=== PATIENT | female | born 1960 | race American Indian/Alaskan Native ===

== ENCOUNTER 2018-04-03 11:25 | Outpatient (CLI) | payer BC ==
--- NOTE | 2018-04-03 13:32 | Mammography Report ---
BILATERAL DIGITAL SCREENING MAMMOGRAM with CAD : 04/03/18 11:25:00 CLINICAL: Routine screening. COMPARISON:10/19/15 and 11/06/15 FINDINGS: The breasts are heterogeneously dense, which may obscure small masses.Bilateral scattered calcifications with benign morphology. No mass, architectural distortion or suspicious calcifications. IMPRESSION: No mammographic evidence of malignancy. BI-RADS CATEGORY: 2 -- Benign RECOMMENDATION: Routine mammographic screening in one year. COMMENT: Patient follow-up letters are generated by our [employer] application.
== END 2018-04-03 11:26 | disposition home or self-care (01) ==
LOC: SPVWC 11:25
PROVIDERS: ATTEND Obstetrics & Gynecology
DX: Z12.31 Encounter for screening mammogram for malignant neoplasm of breast (principal)
CPT/HCPCS: 77067

== ENCOUNTER 2019-04-08 17:10 | Outpatient (CLI) | payer BC ==
--- NOTE | 2019-04-12 11:32 | Mammography Report ---
DIGITAL SCREENING MAMMOGRAM WITH CAD, 04/08/2019 INDICATION: Routine screening mammography. TECHNIQUE: Digital bilateral 2D mammography was obtained in the craniocaudal and mediolateral obliq ue projections. This examination was interpreted with the benefit of Computer-Aided Detection analysi s. COMPARISON: 04/03/2018 FINDINGS: Breast Density: The breasts are heterogeneously dense, which may obscure small masses. There is no evidence of dominant mass, suspicious calcifications or architectural distortion in eithe r breast. Scattered bilateral calcifications with benign morphology. IMPRESSION: No mammographic evidence of malignancy. Follow up recommendation: Routine yearly BI-RADS Category 2: Benign. A "normal" or negative report should not discourage follow up or biopsy of a clinically significant f inding. A written summary of these findings will be mailed to the patient. The patient will be entered into a mammography reporting system which will generate a reminder letter for the patient's next appointmen t at the appropriate interval. The [employer] recommends yearly mammograms starting at age 40 and continuing as l fern as a woman is in good health. Breast MRI is recommended for women with an approximate 20-25% or greater lifetime risk of breast cancer, including women with a strong family history of breast or ova conrad cancer or who have been treated for Hodgkin's disease. Signer Name: Wilfredo Mckay MD Signed: 04/12/2019 11:28 AM Workstation Name: [id number]
== END 2019-04-08 17:11 | disposition home or self-care (01) ==
LOC: SPVWC 17:10
PROVIDERS: ATTEND Obstetrics & Gynecology
DX: Z12.31 Encounter for screening mammogram for malignant neoplasm of breast (principal)
CPT/HCPCS: 77067

== ENCOUNTER 2020-04-11 08:00 | Outpatient (CLI) | payer BC ==
--- NOTE | 2020-04-14 08:09 | Mammography Report ---
DIGITAL SCREENING MAMMOGRAM WITH CAD, 04/13/2020 INDICATION: Routine screening mammography. TECHNIQUE: Digital bilateral 2D mammography was obtained in the craniocaudal and mediolateral obliq ue projections. This examination was interpreted with the benefit of Computer-Aided Detection analysi s. COMPARISON: 04/03/2018. FINDINGS: Breast Density: The breasts are heterogeneously dense, which may obscure small masses. There is no evidence of dominant mass, suspicious calcifications or architectural distortion in the l eft breast. Increasing calcifications 3:00 right breast posterior depth. Magnification views are senait mmended. IMPRESSION: Follow up recommendation: Special View: Mag BI-RADS Category 0: Incomplete. Needs additional imaging evaluation and/or prior mammograms for aravind rison. A "normal" or negative report should not discourage follow up or biopsy of a clinically significant f inding. A written summary of these findings will be mailed to the patient. The patient will be entered into a mammography reporting system which will generate a reminder letter for the patient's next appointmen t at the appropriate interval. The [employer] recommends yearly mammograms starting at age 40 and continuing as l fern as a woman is in good health. Breast MRI is recommended for women with an approximate 20-25% or greater lifetime risk of breast cancer, including women with a strong family history of breast or ova conrad cancer or who have been treated for Hodgkin's disease. Signer Name: Papi Solares MD Signed: 04/14/2020 8:04 AM Workstation Name: [id number]
== END 2020-04-11 08:01 | disposition home or self-care (01) ==
LOC: SPVWC 08:00
PROVIDERS: ATTEND Surgery
DX: Z12.31 Encounter for screening mammogram for malignant neoplasm of breast (principal)
CPT/HCPCS: 77067

== ENCOUNTER 2020-04-18 08:19 | Outpatient (CLI) | payer BC ==
--- NOTE | 2020-04-18 10:42 | Mammography Report ---
DIGITAL DIAGNOSTIC MAMMOGRAM WITH CAD , 04/18/2020 CLINICAL INFORMATION / INDICATION: Grouped calcifications in the right breast on screening mammograph y. -Rt abn mammo TECHNIQUE: Digital right mammographic imaging was performed. Magnification views were obtained. This examination was interpreted with the benefit of Computer-aided Detection analysis. COMPARISON: Bilateral mammography 04/11/20. FINDINGS: Breast Density: The breasts are heterogeneously dense, which may obscure small masses. There are 2 adjacent areas of grouped calcifications in the right breast superomedially. The posterio r group is coarse and heterogeneous and the anterior group is faint and amorphous. No other abnormali ty is seen. IMPRESSION: 2 adjacent areas of grouped calcifications in the right breast are suspicious. Biopsy of both groups is recommended. Follow up recommendation: Surgical consult BI-RADS Category 4: Suspicious for Malignancy. BI-RADS Category 4B-intermediate suspicion for maligna ncy. A "normal" or negative report should not discourage follow up or biopsy of a clinically significant f inding. A written summary of these findings will be mailed to the patient. The patient will be entered into a mammography reporting system which will generate a reminder letter for the patient's next appointmen t at the appropriate interval. According to the [employer], yearly mammograms are recommended starting at age 40 and continuing as long as a woman is in good health. Breast MRI is recommended for women with an ana roximately 20-25% or greater lifetime risk of breast cancer, including women with a strong family his tory of breast or ovarian cancer and women who have been treated for Hodgkin's disease. Signer Name: Jacob Crawford MD Signed: 04/18/2020 10:37 AM Workstation Name: [email or web address]
--- NOTE | 2020-04-18 12:18 | Ultrasound Report ---
ULTRASOUND BREAST LEFT COMPLETE, 04/18/2020 CLINICAL INFORMATION / INDICATION: LEFT BREAST CYST, INTRADUCTAL MASS. TECHNIQUE: Complete sonographic evaluation of all 4 quadrants and retroareolar region was performed. COMPARISON: Bilateral mammography 04/11/20. FINDINGS: There is moderate ductal ectasia in the subareolar region. There is a 2.8 mm rounded isoechoic solid nodule in one of the dilated ducts in the subareolar region at the 6:00 position. No posterior featur es are seen and no internal vascularity is noted on Doppler exam. No other abnormality is identified. There is no evidence of adenopathy. IMPRESSION: 2.8 mm solid intraductal nodule in the subareolar region likely represents a papilloma. B iopsy is recommended. Follow up recommendation: Surgical consult BI-RADS Category 4: Suspicious for Malignancy. BI-RADS Category 4A-low suspicion for malignancy. A normal or "negative" report should not preclude biopsy or follow-up of a clinically suspicious find ing. Signer Name: Jacob Crawford MD Signed: 04/18/2020 12:14 PM Workstation Name: [id number]
== END 2020-04-18 08:20 | disposition home or self-care (01) ==
LOC: SPVWC 08:19
PROVIDERS: ATTEND Surgery
DX: N60.42 Mammary duct ectasia of left breast (principal); N63.42 Unspecified lump in left breast, subareolar

== ENCOUNTER 2020-05-03 09:41 | Outpatient (CLI) | payer BC ==
--- NOTE | 2020-05-03 13:37 | Mammography Report ---
RIGHT DIAGNOSTIC MAMMOGRAM INDICATION: Status post right breast stereotactic biopsy. COMPARISON: 04/18/2020, 04/11/2020. FINDINGS: Right breast CC and LM projection mammograms were obtained. These document the accurate loc ation of a biopsy marker within an anterior group of calcifications which were noted in the right upp er breast imaging. Moderate size hematoma is noted in this region measuring up to 2.4 x 2.9 x 1.9 cm. Interval decrease in number of calcifications previously noted in this region. IMPRESSION: Right breast mammographic images documenting accurate location of a biopsy marker within an anterior group of calcifications noted previously in the right upper inner breast. A moderate size hematoma is present at the biopsy site. BI-RADS Category 4: Suspicious for Malignancy. Signer Name: Rivas Muñoz MD Signed: 05/03/2020 1:36 PM Workstation Name: [id number]
--- NOTE | 2020-05-03 13:51 | Mammography Report ---
PERCUTANEOUS STEREOTACTIC-GUIDED RIGHT BREAST BIOPSY WITH MARKER PLACEMENT HISTORY: Right breast calcifications in 2 separate areas. CONSENT: Technique, risks and alternatives were discussed with the patient and informed written conse nt obtained. We specifically discussed the risk of bleeding as multiple blood vessels were noted in t he region of these calcifications. PROCEDURE: The patient was placed in the prone position on the Siemens biopsy table. The calcifications in quest ion in the upper inner anterior right breast were targeted mammographically. Cad Detailer and stereo pair im ages were acquired to generate the computer-derived coordinates for targeting. The skin overlying the chosen biopsy site were cleansed with Betadine. The skin and superficial soft tissues were anesthet ized with a small amount of buffered 1% lidocaine. The deeper soft tissues were anesthetized with bu ffered 1% lidocaine with epinephrine. A small dermatotomy was created through which the [facility] biopsy device was placed. Pre and post fire st ereo pair images were acquired to confirm appropriate needle trajectory. Using vacuum assistance, mul tiple core specimen samples were acquired. A post procedure specimen radiograph confirmed calcificati ons within core specimen samples. A biopsy marker was deposited at the biopsy site and a subsequent image documented deployment. Manual pressure was applied at the biopsy site to achieve hemostasis. The incision margins were appro ximated with Steri-Strips. Postprocedure care instructions were administered in both verbal and writt en forms. We discussed that a hematoma was noted on the post procedure mammogram and that bruising an d possible palpable area will likely be present. The patient voiced understanding and departed the [facility] in stable, satisfactory condition. IMPRESSION Technically successful stereotactic biopsy of right upper inner anterior breast calcifications. A mod erate-sized hematoma formed at the biopsy site. NOTE: The patient was scheduled for two biopsies within the right upper inner breast. She did not wan t to undergo both biopsies and requested only a single biopsy be performed today. She understands she will have to return in the near future for biopsy of a second more posterior calcifications. It was noted that the calcifications in the posterior location may be difficult to position within the field -of-view. When the patient returns, oblique positioning with possible arm placement through the hole may be necessary to successfully reach the more posterior grouping of calcifications. An addendum will be added to this report once pathology results are available. Signer Name: Rivas Muñoz MD Signed: 05/03/2020 1:50 PM Workstation Name: [id number]
== END 2020-05-03 09:42 | disposition home or self-care (01) ==
LOC: SPVWC 09:41
PROVIDERS: ATTEND Surgery
DX: R92.1 Mammographic calcification found on diagnostic imaging of breast (principal); N64.89 Other specified disorders of breast; R92.8 Other abnormal and inconclusive findings on diagnostic imaging of breast; D24.1 Benign neoplasm of right breast; R92.0 Mammographic microcalcification found on diagnostic imaging of breast; N60.81 Other benign mammary dysplasias of right breast
CPT/HCPCS: 19081; 77065; 88305; A4648

== ENCOUNTER 2020-05-09 09:56 | Outpatient (CLI) | payer BC ==
--- NOTE | 2020-05-09 12:40 | Mammography Report ---
DIGITAL DIAGNOSTIC MAMMOGRAM WITH CAD CONVENTIONAL, 05/09/2020 CLINICAL INFORMATION / INDICATION: Post ultrasound-guided biopsy TECHNIQUE: Digital left mammographic imaging was performed. This examination was interpreted with the benefit of Computer-aided Detection analysis. COMPARISON: Bilateral mammogram 04/11/2020 FINDINGS: Breast Density: The breasts are extremely dense, which lowers the sensitivity of mammography. Biopsy clip is seen in the expected retroareolar area. IMPRESSION: Appropriate clip placement Follow up recommendation: Per biopsy results Post biopsy imaging. A "normal" or negative report should not discourage follow up or biopsy of a clinically significant f inding. A written summary of these findings will be mailed to the patient. The patient will be entered into a mammography reporting system which will generate a reminder letter for the patient's next appointmen t at the appropriate interval. According to the [employer], yearly mammograms are recommended starting at age 40 and continuing as long as a woman is in good health. Breast MRI is recommended for women with an ana roximately 20-25% or greater lifetime risk of breast cancer, including women with a strong family his tory of breast or ovarian cancer and women who have been treated for Hodgkin's disease. Signer Name: Jay Tabares MD Signed: 05/09/2020 12:35 PM Workstation Name: [id number]
--- NOTE | 2020-05-09 15:27 | Ultrasound Report ---
ULTRASOUND-GUIDED LEFT BREAST VACUUM-ASSISTED BIOPSY INDICATION: Possible intraductal nodule COMPARISON: Left breast ultrasound 04/18/2020 CONSENT: Procedure was discussed at length in advance with the patient. Possible risks and benefits w ere discussed including the possibility of bleeding. Postbiopsy care was discussed. Opportunity for q uestions was provided. Patient is not on anticoagulant therapy and reports no pertinent allergies. PROCEDURE: Timeout was performed. The possible intraductal nodule in the retroareolar left breast at roughly 6:00 was again localized sonographically. Using aseptic technique and under local anesthesia, with real-time sonographic guidance, the area of interest was biopsied. Multiple specimens were obta ined with an Achieve 18-gauge biopsy device and sent to pathology for analysis. A metallic clip was p laced at the end of the procedure. Site was secured and the patient was sent for post biopsy mammogra m. Patient tolerated the procedure well and left the department in good condition. IMPRESSION: Successful ultrasound-guided left breast biopsy Signer Name: Jay Tabares MD Signed: 05/09/2020 3:22 PM Workstation Name: [id number]
== END 2020-05-09 09:57 | disposition home or self-care (01) ==
LOC: SPVWC 09:56
PROVIDERS: ATTEND Surgery
DX: N63.24 Unspecified lump in the left breast, lower inner quadrant (principal); R92.8 Other abnormal and inconclusive findings on diagnostic imaging of breast
CPT/HCPCS: 88305

== ENCOUNTER 2021-01-17 10:04 | Outpatient (CLI) | payer BC ==
--- NOTE | 2021-01-17 14:40 | Mammography Report ---
BILATERAL DIGITAL DIAGNOSTIC MAMMOGRAM WITH CAD , 01/17/2021 LEFT LIMITED BREAST ULTRASOUND CLINICAL INFORMATION / INDICATION: Left breast pain and brown left nipple discharge. Pain is chronic. History of bilateral breast biopsies. TECHNIQUE: Digital bilateral mammographic imaging was performed. Limited ultrasound was performed. Th is examination was interpreted with the benefit of Computer-Aided Detection (CAD) analysis. COMPARISON: Multiple prior mammograms including 04/11/2020, 04/08/2019 and 10/19/2015 FINDINGS: Breast Density: The breasts are heterogeneously dense, which may obscure small masses. MAMMOGRAPHIC FINDINGS: No dominant mass, suspicious calcifications, or architectural distortion in ei ther breast. Benign scattered calcifications are noted bilaterally. Biopsy clips are present bilatera lly unchanged from 2020 mammogram. There continues to be grouped calcifications in the upper inner ri ght breast previously having been recommended for biopsy. These have become slightly more coarse and are more suggestive of degenerating fibroadenoma. Continued annual surveillance of these calcificatio ns is recommended. There has not been significant interval change in the overall appearance. No mammo graphic correlate for left breast pain and/or discharge. ULTRASOUND FINDINGS: Targeted ultrasound evaluation was performed of the area of interest. Sonograp hic evaluation of the left breast, subareolar area shows multiple small simple cyst as well as ductal ectasia. No solid mass or focal area of shadowing noted. IMPRESSION: No mammographic or sonographic evidence of malignancy. Specifically, no mammographic or s onographic correlate is noted to account for patient's complaint of left breast pain and brownish nip ple discharge. Clinical correlation is recommended. Additionally, continued annual surveillance of grouped calcifications in the upper inner right breast is recommended. Calcifications are becoming more coarse and are more suggestive of degenerating fibr oadenoma. Follow up recommendation: Routine yearly BI-RADS Category 2: Benign. A "normal" or negative report should not discourage follow up or biopsy of a clinically significant f inding. A written summary of these findings will be mailed to the patient. The patient will be entered into a mammography reporting system which will generate a reminder letter for the patient's next appointmen t at the appropriate interval. According to the [employer], yearly mammograms are recommended starting at age 40 and continuing as long as a woman is in good health. Breast MRI is recommended for women with an ana roximately 20-25% or greater lifetime risk of breast cancer, including women with a strong family his tory of breast or ovarian cancer and women who have been treated for Hodgkin's disease. Signer Name: Tila Jeong MD Signed: 01/17/2021 2:36 PM Workstation Name: [id number]
== END 2021-01-17 10:05 | disposition home or self-care (01) ==
LOC: SPVWC 10:04
PROVIDERS: ATTEND Surgery
DX: R92.1 Mammographic calcification found on diagnostic imaging of breast (principal)
CPT/HCPCS: 77066

== ENCOUNTER 2021-02-14 07:08 | Day surgery (SDC) | payer BC ==
[2021-02-12 13:02] LABS: Hematocrit 33.4 % (30.3-42.9); Hemoglobin 10.6 gm/dl (10.1-14.3); Mean Corpuscular HGB Conc 32 % (30-34); Mean Corpuscular Volume 81 fl (79-97); Platelet Count 470 K/mm3 (140-440); Red Blood Count 4.15 M/mm3 (3.65-5.03); Red Cell Distribution Width 17.5 % (13.2-15.2)
[2021-02-12 13:58] LABS: Blood Urea Nitrogen 14 mg/dL (7-17); Calcium 10.3 mg/dL (8.4-10.2); Hemolysis Index 3
[2021-02-12 14:15] LABS: BUN/Creatinine Ratio 20
[~2021-02-14 07:08] MED LIST: ACETAMINOPHEN 500 MG TAB PO SCH; CELECOXIB 200 MG CAP PO NR; GABAPENTIN 300 MG CAP PO NR; LACTATED RINGERS 1,000 ML IV SCH; MIDAZOLAM 2 MG/2 ML INJ IV NR; ceFAZolin/STERILE WATER 2 GM/20 ML SYRINGE IV NR
[2021-02-14] MEDS ORDERED: LIDOCAINE (1%) 10 MG/1 ML VIAL 20 ML MDV ONE ×2 (07:38→10:59)
--- NOTE | 2021-02-14 08:15 | Mammography Report ---
MAMMOGRAPHIC GUIDED LEFT BREAST NEEDLE LOCALIZATION, 02/14/2021 CLINICAL INFORMATION / INDICATION: LT BREAST MASS. COMPARISON: 01/17/2021 diagnostic mammogram PROCEDURE: Risks, benefits and indications to the procedure were discussed with the patient. The patient agreed to proceed with both verbal and written consent. A timeout procedure was performed with 2 patient roxanne ntifiers. The breast was prepped with betadine in the usual sterile fashion. Approximately 5 cc of Lidocaine 1% was used for local anesthesia. Under direct digital mammographic guidance, a localization wire was p laced in satisfactory position with distal tip traversing the targeted lesion. Post-biopsy mammogram confirms satisfactory positioning of the localization wire. The wire was secured to the skin with a s terile dressing. The patient tolerated procedure without difficulty. No complications were encountered. IMPRESSION: 1. Satisfactory mammographic guided wire localization of the left breast. Signer Name: Bud Garcia Jr, MD Signed: 02/14/2021 8:11 AM Workstation Name: [id number]
[2021-02-14] MEDS ORDERED: HYDROmorphone 1 MG/1 ML INJ IV PRN (09:51)
[2021-02-14] MEDS ORDERED: oxyCODONE /ACETAMINOPHEN 5-325MG TAB PO PRN (09:51)
--- NOTE | 2021-02-14 09:51 | Anesthesia Day of Surgery ---
Anesthesia Day of Surgery - Day of Surgery Patient Examined: Yes Patient H&P Reviewed: Yes Patient is NPO: Yes
--- NOTE | 2021-02-14 09:51 | Anesthesia Consultation ---
Anesthesia Consult and Med Hx Date of service: 02/14/21 - Airway Anesthetic Teeth Evaluation: Good ROM Head & Neck: Adequate Mental/Hyoid Distance: Adequate Mallampati Class: Class III Intubation Access Assessment: Possibly Difficult - Pre-Operative Health Status ASA Pre-Surgery Classification: ASA2 Proposed Anesthetic Plan: General - Pulmonary Hx Smoking: No Hx Respiratory Symptoms: No - Cardiovascular System Hx Hypertension: No (lisinopril for renal protection) Hx Heart Attack/AMI: No Hx Percutaneous Transluminal Coronary Angioplasty (PTCA): No Hx Valvular Heart Disease: Yes (MVP) - Central Nervous System CVA: No - Endocrine Hx Renal Disease: No Hx Liver Disease: No Hx Non-Insulin Dependent Diabetes: Yes Hx Thyroid Disease: No - Hematic Hx Anemia: Yes - Other Systems Hx Obesity: No
[2021-02-14] MEDS ORDERED: ONDANSETRON 4 MG/2 ML INJ IV PRN (10:30)
[2021-02-14] MEDS ORDERED: LIDOCAINE PF 100 MG/5 ML (CARDIAC SYRINGE) IV ONE (10:31)
[2021-02-14] MEDS ORDERED: ONDANSETRON 4 MG/2 ML INJ ONE ×2 (10:31→13:17)
[2021-02-14] MEDS ORDERED: dexAMETHasone 20 MG/5 ML VIAL ONE (10:31)
[2021-02-14] MEDS ORDERED: KETOROLAC 30 MG/1 ML INJ ONE (10:31)
[2021-02-14] MEDS ORDERED: fentaNYL 100 MCG/2 ML INJ ONE (10:32)
[2021-02-14] MEDS ORDERED: propofoL 200 MG/20 ML VIAL IV ONE (10:32)
[2021-02-14] MEDS ORDERED: BUPIVACAINE/PF (0.25%) 2.5 MG/ML 30 ML VIAL INFILTRATI ONE ×4 (10:59→12:01)
[2021-02-14] MEDS ORDERED: LIDOCAINE (1%) 10 MG/1 ML VIAL 20 ML MDV INFILTRATI ONE (11:46)
[2021-02-14] MEDS ORDERED: WATER FOR IRRIG STERILE 1,500 ML BOTTLE IR ONE (11:46)
[2021-02-14] MEDS ORDERED: ePHEDrine SULFATE 50 MG/1 ML INJ ONE (12:19)
[2021-02-14] MEDS ORDERED: BACITRACIN ZINC OINT 28.4 GM TP ONE ×2 (12:50→12:53)
--- NOTE | 2021-02-14 13:02 | Short Stay Summary ---
Short Stay Documentation Date of service: 02/14/21 - History H&P: obtained from office - Allergies and Medications Current Medications: Allergies morphine Allergy (Verified 01/30/21 11:44) Nausea Home Medications Medication Instructions Recorded Confirmed Last Taken Type AtorvaSTATin [Lipitor] 20 mg PO QHS 02/12/21 02/12/21 Unknown History Cetirizine HCl [Zyrtec 10mg tab] 10 mg PO PRN PRN 02/12/21 02/12/21 Unknown History Escitalopram Oxalate [Lexapro] 5 mg PO QDAY 02/12/21 02/12/21 Unknown History Lisinopril [Zestril] 5 mg PO DAILY 02/12/21 02/12/21 Unknown History Metformin HCl [metFORMIN] 1,000 mg PO BID 02/12/21 02/12/21 Unknown History Semaglutide [Ozempic] 1 mg SQ 1XW 02/12/21 02/12/21 Unknown History Tafluprost/Pf [Zioptan 0.0015% Eye 2 each OU QHS 02/12/21 02/12/21 Unknown History Drops] Valacyclovir HCl [Valacyclovir] 500 mg PO PRN PRN 02/12/21 02/12/21 Unknown History buPROPion [Wellbutrin] 300 mg PO DAILY 02/12/21 02/12/21 Unknown History glipiZIDE [Glucotrol] 10 mg PO BID 02/12/21 02/12/21 Unknown History hydrOXYzine PAMOATE [Vistaril] 25 mg PO Q6HR PRN 02/12/21 02/12/21 Unknown History Ibuprofen [Motrin 800 MG tab] 800 mg PO Q8HR PRN #10 tablet 02/14/21 Unknown Rx Active Medications Acetaminophen (Acetaminophen 500 Mg Tab) 1,000 mg PO PREOP PAM Stop: 02/14/21 23:59 Cefazolin Sodium (Cefazolin/Sterile Water 2 Gm/20 Ml Syringe) 2 gm IV PREOP NR Stop: 02/14/21 23:59 Celecoxib (Celecoxib 200 Mg Cap) 200 mg PO PREOP NR Stop: 02/14/21 23:59 Gabapentin (Gabapentin 300 Mg Cap) 300 mg PO PREOP NR Stop: 02/14/21 23:59 Hydromorphone HCl (Hydromorphone 1 Mg/1 Ml Inj) 0.5 mg IV Q10MIN PRN PRN Reason: Pain , Severe (7-10) Stop: 02/14/21 23:00 Lactated Ringer's (Lactated Ringers) 1,000 mls @ 100 mls/hr IV DIRECT PAM Stop: 02/14/21 23:59 Midazolam HCl (Midazolam 2 Mg/2 Ml Inj) 2 mg IV PREOP NR Stop: 02/14/21 23:59 - Brief post op/procedure progress note Date of procedure: 02/14/21 Pre-op diagnosis: Left retroareolar breast mass and bloody nipple discharge Post-op diagnosis: same Procedure: Left nipple terminal duct excisional biopsy with breast mass needle localization excisional biopsy Anesthesia: GETA Findings: Left wire and clip present; bleeding terminal duct identified Surgeon: ROSITA ALDANA Estimated blood loss: minimal Pathology: list Specimen disposition: to lab Condition: stable - Disposition Condition at discharge: Good Disposition: 01 HOME / SELF CARE / HOMELESS Short Stay Discharge Plan Activity: other (no heavy lifting) Diet: regular Wound: keep clean and dry (wear breast binder; may shower in 48 hours; no baths; apply bacitracin twice daily) Follow up with: ROSITA ALDANA MD [Staff Physician] - 7 Days Prescriptions: Ibuprofen [Motrin 800 MG tab] 800 mg PO Q8HR PRN #10 tablet PRN Reason: Pain , Severe (7-10)
--- NOTE | 2021-02-14 13:12 | Operative Report ---
Operative Report Operative Report: Operative Report: Date of procedure: February 14, 2021 Pre-operative diagnosis: Spontaneous left bloody nipple discharge and retroareaoler left breast mass of the upper outer quadrant Post-operative diagnosis: Same Procedure name(s): Left nipple terminal duct excisional biopsy and retroareolar left breast mass needle localization excisional biopsy Surgeon: Nasreen Haddad M.D. Government Property Inspector: Luigi Palafox M.D. Anesthesia: Gen. Findings: Bleeding from left nipple noted around the 11 o'clock position-close to center of nipple was appropriately identified and dissected free with clip from prior biopsy within area removed in its entirety and sent to pathology Complications: None Drains: None Estimated blood loss: Minimal Disposition: PACU in good condition Indications for operative procedure: This is a 61 year old lady with recent left nipple spontaneous bloody nipple discharge and history of abnormal left breast ultrasound. 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 Patient underwent ultrasound-guided core biopsy by radiologist with findings of benign breast tissue and negative for atypia or malignancy; biopsy discordant and recommendations for excisional biopsy May 2020 and patient declined. Recently patient with spontaneous left bloody nipple discharge and recommendations to proceed with a left nipple terminal duct excisi onal biopsy given spontaneous left bloody nipple discharge as well as left needle localization excisional biopsy of prior 2.8 mm mass that was biopsied given area most likely adjacent to bleeding duct of concern and prior biopsy pathology discordant. Recommendations were to proceed with surgery to rule out malignancy. Recent diagnostic mammogram and breast ultrasound 01/18/2021 with benign findings, BI-RADS 2. Patient wished to proceed with the above procedure. Procedure in detail: Radiology placed wire localization at prior biopsy clip. The patient was taken to the operating room. Gen. anesthesia was administered. The left breast was prepped and draped in the normal side operative fashion. Timeout was performed. Ultrasound was used to identify area of tip of wire adjacent to clip. The bleeding duct from the left nipple was identified around the 11 o'clock position. Lacrimal probe was inserted into bleeding duct of concern. A 3:00 position periareolar incision was made with a 15 blade knife with dissection taken down to the subcutaneous tissues. First began with dissection of the tissues that was taken down posteriorly to 3 cm. The duct of concern was identified with lacrimal probe appropriately inserted within the duct of concern. The terminal duct was appropriately marked using a 3-0 Vicryl stitch. The terminal duct with its surrounding tissues were dissected free with the aid of Bovie cautery. Lacrimal probe was inserted inside the bleeding duct. Attention was then taken towards the wire with the lateral flap raised with removal of the wire from the skin. The wire was then followed medially with dissection taken posteriorly, superiorly and inferiorly. Area of concern to include terminal duct excisional biopsy as well as needle localization excisional was excised enbloc from the posterior breast tissues with the aid of the bovie cautery. Radiograph specimen with clip and wire present. The breast cavity was then examined carefully with a small nodule less than 5 mm identified that was located medially and posterior to the nipple that was excised and sent to pathology. Hemostasis was obtained with the aid of Bovie cautery. The breast cavity tissues were anesthetized with 1% lidocaine and quarter percent Marcaine. The subcutaneous tissues were approximated and closed using interrupted 3-0 Vicryl and skin brought together and closed using a running 4-0 Monocryl followed by dermabond. She tolerated surgery very well and was awakened from anesthesia without any complications and transported to PACU in good condition.
--- NOTE | 2021-02-14 14:05 | Post Anesthesia Evaluation ---
- Post Anesthesia Evaluation Patient Participated: Yes Airway Patent: Yes Stable Respiratory Function: Yes Nausea/Vomiting: No Temp > 96.8F: Yes Pain Manageable: Yes Adequeate Hydration: Yes Anesthesia Complications: No
[2021-02-14] MEDS ORDERED: oxyCODONE /ACETAMINOPHEN 5-325MG TAB ONE (14:13)
[2021-02-14 14:54] VITALS: BP 122/64
--- NOTE | 2021-02-14 15:01 | Mammography Report ---
BREAST SPECIMEN RADIOGRAPH HISTORY: Lumpectomy FINDINGS/IMPRESSION: The submitted radiograph or radiographs demonstrate(s) the presence of a biopsy marker and distal asp ect of a localization wire within soft tissue, as expected. Signer Name: Tila Jeong MD Signed: 02/14/2021 2:57 PM Workstation Name: [id number]
== END 2021-02-14 14:30 | disposition home or self-care (01) ==
LOC: OR 07:08
PROVIDERS: ATTEND Surgery
DX: N64.52 Nipple discharge (principal); R92.8 Other abnormal and inconclusive findings on diagnostic imaging of breast; N60.82 Other benign mammary dysplasias of left breast; E11.9 Type 2 diabetes mellitus without complications; E78.00 Pure hypercholesterolemia, unspecified; Z79.84 Long term (current) use of oral hypoglycemic drugs; Z79.899 Other long term (current) drug therapy; Z98.890 Other specified postprocedural states
CPT/HCPCS: 19125; 19281; 36415; 76098; 80048; 82962; 85027; 88305; 88307; 88341; 88342; A4648; J0690; J1100; J1885; J2001; J2250; J2405; J2704; J3010; J7120; U0003